=== PATIENT | female | born 1945 ===

== ENCOUNTER → 2020-04-14 11:46 | Outpatient (CLI) | payer MEDICARE, SELFPAY ==
[2020-04-14 13:42] LABS: COVID19 -Nasal RAPID Negative (Negative)
== END ==
PROVIDERS: PCP Orthopaedic Surgery Sports Medicine; Visit Provider Physician Assistant
DX: Z20.822 Contact with and (suspected) exposure to COVID-19 (principal)
CPT/HCPCS: 87635; C9803

== ENCOUNTER → 2020-04-15 15:23 | Outpatient (CLI) | payer MEDICARE, SELFPAY ==
[2020-04-15 15:46] LABS: Bacteria Urine None Seen; RBC Urine None Seen (0-5/HPF)
[2020-04-15 16:23] LABS: Appearance Urine UA CLEAR; Bilirubin Urine UA NEGATIVE (NEGATIVE); Color Urine UA YELLOW; Glucose Urine UA NEGATIVE (Negative); Ketones Urine UA NEGATIVE (NEGATIVE); Leukocyte Esterase Urine UA NEGATIVE (NEGATIVE); Nitrite Urine UA NEGATIVE (Negative); Occult Blood Urine UA NEGATIVE (Negative); Protein Urine UA NEGATIVE (Negative); Urobilinogen Urine UA 0.2 E.U./dL (0.2)
[2020-04-15 16:24] LABS: pH Urine UA 6.5 (4.5-8.0)
[2020-04-15 16:41] LABS: Culture Indicated Urine Cult Not Indicated; Squamous Epithelial Cell Urine 0-1 /HPF (0-5/HPF); WBC Urine 0-1/HPF (0-5/HPF)
== END ==
PROVIDERS: PCP Family Medicine; Referring Provider Orthopaedic Surgery; Visit Provider Orthopaedic Surgery
DX: N39.0 Urinary tract infection, site not specified (principal)
CPT/HCPCS: 81001

== ENCOUNTER 2020-04-16 08:26 | Day surgery (SDC) | payer MEDICARE, SELFPAY ==
[2020-04-16] VITALS (14 sets, daily range): BP systolic 96–153; BP diastolic 52–85; PULSE 61–81; RESP 13–18; TEMP 34.6–36.9; O2SAT 95–100; BMI 20.3; BMI 20.9
--- NOTE | 2020-04-16 | DI.RAD.S_ITS ---
PROCEDURE: XR HIP W PEL IF DONE RT 4V INDICATIONS: INNER OP HIP ANTERIOR TECHNIQUE: 2 view(s) of the hip acquired. COMPARISON: [facility] [place], CR, XR PELVIS WITH LATERAL HIP RIGHT, 03/03/2020, 16:02. FINDINGS: Bones: 3 intraoperative films demonstrate performance of total right hip arthroplasty, with hardware components in expected positions. The hip joint appears congruent. The visualized bony structures appear intact. Soft tissues: Overlying postoperative changes are noted. No suspicious soft tissue densities. IMPRESSION: Intraoperative imaging for total right hip arthroplasty with no radiographic evidence of complications. Dictated by: Bharath Cano M.D. on 04/16/2020 at 14:50 Approved by: Bharath Cano M.D. on 04/16/2020 at 14:52
--- NOTE | 2020-04-16 07:38 | DI.RAD.S_ITS ---
PROCEDURE: XR HIP W PEL IF DONE RT 2V INDICATIONS: right hip surgery TECHNIQUE: AP pelvis and lateral view of the right hip acquired. COMPARISON: [facility] [place], CR, XR PELVIS WITH LATERAL HIP RIGHT, 03/03/2020, 16:02. [facility], CR, XR HIP W PEL IF DONE RT 4V, 04/16/2020, 11:39. FINDINGS: Bones: Patient is status post right hip arthroplasty, with hardware components in expected positions. The hip joint appears congruent. The visualized bony structures appear intact. Mild left hip joint narrowing. Soft tissues: Overlying postoperative changes are noted. No suspicious soft tissue densities. IMPRESSION: Expected immediate appearance status post placement of right hip arthroplasty. Dictated by: Jonah STANLEY Interpreted: Gómez Marcus MD on 04/16/2020 at 15:43 Approved by: Gómez Marcus M.D. on 04/16/2020 at 16:13
--- NOTE | 2020-04-16 07:43 | PM.OP.1 ---
Operative Date/Time/Diagnoses Date of procedure: 04/16/20 Time of procedure: 11:06 Pre-op diagnosis: right hip OA Post-op diagnosis: same Procedure & Clinicians Procedure: Right total hip arthroplasty anterior approach Same procedure as scheduled: Yes Indications: The patient has had progressively worsening right hip pain with radiographic changes consistent with arthritis. Non-operative management has failed and the patient has requested total hip replacement. The risks, benefits and alternatives to surgery were discussed with the patient prior to proceeding. Risks discussed included, but were not limited to, failure to relieve pain, leg length discrepancy, dislocation, stiffness, infection, nerve damage, deep venous thrombosis, pulmonary embolism, stroke, coma, heart attack, permanent paralysis and , as well as the potential need for eventual revision of the prosthetic. Surgeon: Isabelle Turner Payroll Administrator: Zak Chowdhury Click Yes if Unassisted: Yes Anesthesia Type: General and Spinal Operative Notes Findings: severe right hip osteoarthritis, adequate stability, soft bone Closure Type: primary Specimen(s): none sent Prosthetic devices, grafts, tissues, transplants, or devices: Turner [employer] Nephew R3 50 cup, size 4 standard offset femur, anthology, -3 neck,one 15 mm screw Estimated Blood Loss (mL): 250 Blood products transfused: none Procedure in detail: The patient was brought to the operating room. Patient was carefully positioned in the supine position. Time-out was performed and antibiotics were given. Anesthesia was induced. She was positioned in the on the table in order to allow hyperextension of the hip. The right lower extremity was prepped and draped in a standard sterile fashion. An anterior right hip incision was made 1 fingerbreadth lateral to the anterior superior iliac spine and extended distally towards the greater trochanter. Dissection was carried out through skin and subcutaneous tissues. Superficial hemostasis was achieved. The fascia over the tensor fascia jason was defined and incised with a knife. Two Allis clamps were used to grasp the fascia. Tensor fascia jason was retracted laterally. A gelpi retractor was placed. Dissection was carried out down along the neck. The circumflex vessels were carefully identified and cauterized with the Aqua Mantis. There was good visualization of the femoral neck. A Cobra was placed superior to the neck and the gluteus fibers were carefully stripped from that superior aspect of the capsule. A 2nd retractor was placed along the inferior aspect of the neck. The rectus insertion along the capsule was partially released. A 3rd retractor that was then gently placed over the rim of the acetabulum under the rectus. Capsule was carefully incised and released from the intertrochanteric line circumferentially superior to the mid sagittal line and inferiorly to the mid sagittal line until the lesser trochanter was palpable. A tag stitch was placed both in the superior and inferior limb of the capsular insertion. Along the acetabulum capsule was also released up to the mid sagittal 12:00 position. A portion of the labrum was resected. A saw was used to perform an osteotomy at the level of the intertrochanteric line and the junction of the superior femoral neck leaving approximately 1 finger breath of residual inferior neck above the lesser trochanter. A 2nd cut was made along the femoral neck at the base of the head and a napkin ring of neck was removed. Corkscrew was placed in the femoral head and the head was removed without difficulty. Retractors were then repositioned around the acetabulum. Residual labrum was resected and additional osteophytes were removed. A reamer that was 4 mm below the templated size was placed by hand in the acetabulum and it was reamed to centralize the acetabulum. It was then reamed up to 2 under the templated size and fluoroscopy was brought in to confirm the position of the reaming and depth of reaming. I reamed 1 under the anticipated size, A trial cup was placed and noted that it was appropriately sized and fluoroscopy confirmed position and depth. The component was open and inserted without difficulty fluoroscopic imaging was used to confirm that the cup had been adequately seated and was well positioned. that was further stabilized with a single screw.Neutral poly liner was placed. The cup was tested and noted to be stable. Attention was then directed to the femur. The femur was gently hyperextended additional capsular release was performed as needed in order to allow adequate visualization of the proximal femur with elevation of the femur. Patient was placed in a hyperextended slightly adducted position with maximum external rotation. Box osteotome was used to check for any residual neck as well as sclerotic bone along the trochanter. Lincoln pepper was placed in the femur. Additional broaching was performed. Canal finder was used to determine the alignment of the canal and position. Size 1 broach was placed. The canal was then appropriately broached up to the templated size as long as there was adequate stability of the broach and serial advancement of the broach without excessive impingement. Specific attention was directed at avoiding varus attempting to direct the distal aspect of the broach more anteriorly and avoiding excessive anteversion. Trial reduction showed acceptable range of motion, good stability, no posterior impingement, pentecostal of leg length and appropriate lateral shuck. I also hyperflexed the hip and checked that there was no impingement anteriorly and there was good stability with flexion, adduction and internal rotation. Marcaine and Exparel were injected.. The stem was placed without difficulty. Repeat trial reduction and x-ray showed acceptable overall position, length, and no evidence of the femoral fracture. Final head was placed. Wound was meticulously irrigated with normal saline. The hip was reduced and additional Exparel and Marcaine were injected. The capsule was closed with interrupted nonabsorbable sutures. The fascia of the tensor was closed with interrupted and running Vicryl. No drain was placed. Any tensor fascia jason muscle that appeared to be contused or injured which was a minimal amount was carefully resected. Capsule around the tensor was injected with Exparel and Marcaine. The skin was closed with barbed stitches for the subcutaneous tissue and skin. We also used surgical glue. The wound was dressed sterilely. Brief Betadine soak was also used and was meticulously irrigated with normal saline. Patient was transferred to recovery room in satisfactory condition. Complications: none Post-operative Condition: stable Disposition: Acute Care Plan for aftercare: The patient will be maintained on a standard total hip replacement protocol with weight bearing as tolerated and anterior hip precautions. The patient will receive Aspirin and sequential compression devices for DVT prophylaxis. The patient will be discharged home when safe for the home environment.
[2020-04-16] MEDS: ACETAMINOPHEN 325 MG TABLET 975 MG PO (09:22)
[2020-04-16] MEDS: VANCOMYCIN 1,000 MG/200 ML PIGGYBACK 200 MG IV ×2 (09:35→21:45)
[2020-04-16] MEDS: LACTATED RINGERS 1,000 ML 42 ML IV ×2 (09:45→13:15)
--- NOTE | 2020-04-16 10:08 | PM.PREOP ---
Pre-operative Note COVID-19 COVID-19 status: Negative Interval Note History & Physical reviewed/Exam performed by Physician: Yes Changes to H&P: No
[2020-04-16] MEDS: GENTAMICIN 100 MG in SODIUM CHLORIDE 0.9% 100 ML 102.5 ML IV (10:25)
[2020-04-16] MEDS: BUPIVACAINE LIPOSOME 266 MG/20 ML VIAL INJ (11:01)
[2020-04-16] MEDS: TRANEXAMIC ACID 1,000 MG VIAL 1000 MG INJ ×2 (11:01→12:31)
[2020-04-16] MEDS: BUPIVACAINE 0.5% W/ EPI (PF) 30 ML VIAL INJ (11:03)
[2020-04-16] MEDS: SODIUM CHLORIDE IRRIG SOLUTION 250 ML, POVIDONE-IODINE SPONGE STICKS 1 APPLIC IRR (11:04)
--- NOTE | 2020-04-16 11:07 | SUR.OPER ---
Supine on padded [place] table with bilateral legs secured in padded positioning boots and suspended in positioning spars, operative leg in traction per surgeon. Head on one pillow. Arm on non-operative side secured on padded armboard <90 degrees abduction. Arm on operative side padded and resting across chest then secured with tape over sheet. Padded perineal post in place per surgeon.
--- NOTE | 2020-04-16 14:14 | PC.NURSE ---
Patient up to floor around 1350. She had a total hip replacement, anterior approach. Dressing is aquacel and clean, dry, and intact. Patient is A&Ox3, she denies pain and sais that she does not do well with Narcotics at all, she get nauseous and has severe emesis. She has feeling to all of her R.leg and lower back. She has a small purple bruise to her r.inner thigh and site from where epidural was on lower back. Friend is in room visiting and patient will be on ivf. CMS wnl and ppx2.
[2020-04-16] MEDS: ACETAMINOPHEN 325 MG TABLET 650 MG PO ×2 (14:43→21:38)
[2020-04-16] MEDS: LACTATED RINGERS 1,000 ML 125 ML IV ×2 (14:43→21:50)
--- NOTE | 2020-04-16 16:07 | PC.NURSE ---
Addendum entered by Sarina Vega R.N. 04/16/20 19:55: Pt drank two cups of hot tea and reports urge to void. Assisted to commode observing anterior hip precautions. Pt able to void 400 cc's and reports lower abdominal pain resolved. Denies need for analgesia to treat postop hip pain. Addendum entered by Sarina Vega R.N. 04/16/20 19:05: Dr. Turner in to see patient and was made aware of pt's voiding behaviors this shift and c/o lower abdominal discomfort. Per Dr. Turner, continue to periodically get pt up to commode to attempt to void. Addendum entered by Sarina Vega R.N. 04/16/20 18:38: Pt reports lower abdominal discomfort continues. Has passed gas and was incontinent of large void in bed. Has warm blanket to abdomen. Discussed with pt urinary retention and hesitancy to void with spinal anesthesia. Discussion with pt re urinary catheterization and pt refused this intervention emphatically. Pt now sipping hot tea. Addendum entered by Sarina Vega R.N. 04/16/20 17:58: Assisted pt to bedside commode with two staff members observing anterior hip precautions. Pt already incontinent of urine in bed. No void on commode. Bedding changed, pericare provided and brief placed. Returned to bed with assistance x 2. RLE supported on lengthwise pillow x 1. Pt's RLE kept in neutral position. Warm blanket provided to lower abdomen. Addendum entered by Sarina Vega R.N. 04/16/20 17:32: Pt c/o lower abdominal discomfort. Ibuprofen given and bladder scan completed by RN SUPPLEMENTAL for 399 cc/s. Pt denies urge or need to void. Explained to pt anesthesia can dull the sensation to void and will continue to closely monitor. Original Note: Pt awake and alert resting quietly in bed. Room air 94% per continuous pulse oximeter. Pt's female friend is present, attentive, and involved in pt's care. Pt admits to right hip pain 2/10. Expresses strong feelings about narcotics and will attempt to void these as pt requests. Currently does not want any analgesia. Provided with banana and applesauce. Denies nausea although bowel tones are quiet with soft abdomen. Palpable right pedal pulse. BL calf scd's in place with pillow between pt's legs as found pt when shift began. Encouraged to call for needs. Notified P.T. of pt's arrival to room 208. Pt denies need to void. Ice to right anterior hip placed over gown.
[2020-04-16] MEDS: IBUPROFEN 400 MG TABLET PO ×2 (17:11→21:38)
[2020-04-16] MEDS: ASPIRIN EC 81 MG TABLET PO (21:38)
[2020-04-16] MEDS: DOCUSATE 100 MG CAPSULE PO (21:38)
[2020-04-16] MEDS: ALPRAZolam 0.25 MG TABLET 1 MG PO (21:39)
[2020-04-17] MEDS: carisoprodoL 350 MG TABLET PO (00:03)
[2020-04-17 00:12] VITALS: BP 120/70; PULSE 78; RESP 18; TEMP 36.4; O2SAT 98
[2020-04-17] MEDS: IBUPROFEN 400 MG TABLET PO ×3 (00:14→09:06)
--- NOTE | 2020-04-17 03:01 | PC.NURSE ---
0019: patient is alert and oriented. Breath sounds CTA with RA sat of 98%. HRR w/murmur. Denies nausea. BT present and states she is passing flatus. Has voided since surgery and denies dysuria, frequency or urgency. Able to move self in bed. Has not been up as yet this shift so gait not assessed but reports she was up on evening shift to [facility] with walker and 1 assist and denies any weakness. Does admit to 2/10 discomfort in right leg and was medicated with scheduled Ibuprofen as well as Soma and is currently asleep. Aquacel dressing to right anterior hip is CDI. CMS is intact. Wearing bilateral calf SCD's. Fall risk score is moderate and bed alarm is activated.
[2020-04-17 06:00] VITALS: BP 147/64; PULSE 83; RESP 18; TEMP 36.6; O2SAT 97
[2020-04-17 07:18] VITALS: BP 126/75; PULSE 68; RESP 16; TEMP 36.8; O2SAT 97
--- NOTE | 2020-04-17 08:47 | PM.PNPO.1 ---
Subjective Subjective Date Patient Seen: 04/17/20 Time Patient Seen: 08:47 Interval history: POD #1 Status post right total hip arthroplasty with Dr. Turner. Patient's pain is well controlled this morning. She complains of some anterior thigh pain. She has mobilized in her room and gone to the bathroom. Exam Vital Signs (past 8 hours): - 04/17/20 06:00 04/17/20 07:18 Temperature 97.8 F 98.3 F Pulse Rate 83 68 Respiratory Rate 18 16 Blood Pressure 147/64 H 126/75 Pulse Oximetry 97 97 Oxygen Delivery Method Room Air Oxygen Flow Rate 0 Narrative Exam Narrative: Patient lying in bed no acute distress. She is alert orient x3. Calves are soft compressible, nontender bilaterally. She is able to actively dorsiflex plantar flex. Right hip dressing is CDI. Dorsalis pedis pulses 2+. SCDs on and functioning. [facility] Medical History Anxiety Elevated cholesterol Murmur, cardiac Osteoarthritis Social History household members: none Smoking Status: Former smoker alcohol intake: current Assessment & Plan Post-op Postoperative Procedures: Procedures Operation Date: 04/16/20 10:15 Actual Procedures Side Surgeon p Total Hip Arthroplasty/Anterior Approach Right Isabelle Kristi Turner MD patient will mobilize with PT today. Anterior hip precautions. ASA for DVT prophylaxis. Tramadol and Zofran prescriptions for home. Anticipate discharge home today. Quality VTE Deep Vein Thrombosis/Pulmonary Embolism Present on Admission: No
--- NOTE | 2020-04-17 09:05 | PT.IIE ---
Current Diagnoses Unilateral primary osteoarthritis, right hip (04/16/20) Pain in right hip (04/16/20) Surgery Performed Operation Date: 04/16/20 10:15 Actual Procedures p Total Hip Arthroplasty/Anterior Approach(Right) - Isabelle Turner MD Medical History (Last Reviewed 04/17/20 @ 08:48 by Meredith Claire PA-C) Anxiety Elevated cholesterol Murmur, cardiac Osteoarthritis Physical Therapy Inpatient Evaluation/Re-Eval M1 PT/OT-IP Prior Functional Status Start: 04/17/20 13:47 Freq: NEEDED Status: Active Protocol: Document 04/17/20 09:05 AB (Rec: 04/17/20 13:58 AB [email or web address]) Medical Review Prior Functional Status Medical History Reviewed Yes Communication able to make needs known; has some memory issues Mobility and Gait pt stated that she is indpeendent with all mobilities and ambulation using a 4WW and uses SPC to go up/down steps Social History Household Members none Living Arrangements House Number of Floors (Floors) One Floor Number of Stairs To Enter/Railing? stated that she has 2 steps without rails to the TV room but does not need to go there no steps to enter the house Home Environment Standard Height Toilet,Walk in Shower Home Equipment Front Wheel Walker,Four Wheel Walker,Straight Cane,Raised Toilet Seat w/Armrests,Shower Seat without Backrest,Hand Held Shower,Grab Bars Near Toilet,Grab Bars In Shower M2 PT-IP Current Condition Start: 04/17/20 13:47 Freq: NEEDED Status: Active Protocol: Document 04/17/20 09:05 AB (Rec: 04/17/20 13:58 AB [id number]) Physical Therapy Current Condition Current Condition Evaluation Date 04/17/20 Treatment Diagnosis s/p R MARIA EUGENIA anterior approach; difficulty in walking Onset Date 04/16/20 Precautions Anterior Hip Precautions No Hip Extension,No Hip External Rotation Weight Bearing Status Weight Bearing Status Weight Bear as Tolerated Allowed Weight Bearing Amount (enter % RLE WBAT or #) (%) M3 PT-IP Subjective Start: 04/17/20 13:47 Freq: NEEDED Status: Active Protocol: Document 04/17/20 09:05 AB (Rec: 04/17/20 13:58 AB [email or web address]) Subjective Physical Therapy Visit Type Type Initial Evaluation Visit Start Time 09:05 Visit Stop Time 09:58 Total Visit Minutes 53 Number of ROTARY SHEAR CUTTER Visits 0 Physical Therapy Visit Comments Patient Comments pt is agreeable to do PT Therapy Pain Assessment Pain When Pain Assessed At Rest Pain Present Pain Present Pain Reported Location right hip Intensity 1 Scale Used Numeric (0 - 10) Pain Management Techniques Distraction,Modification of Treatment,Re-positioning, Timing of Activity with Medications M4 PT-IP Mobility and Gait Start: 04/17/20 13:47 Freq: NEEDED Status: Active Protocol: Document 04/17/20 09:05 AB (Rec: 04/17/20 13:58 [email or web address]) PT-Bed Mobility Assessment Supine to Sit Supine to Sit Standby Assistance Sit to Supine Sit to Supine Standby Assistance PT-Transfer Assessment Sit to and From Stand Sit to and from Stand Standby Assistance,Use of Upper Extremities Equipment Transfer Assistive Device Gait Belt,Front Wheeled Walker Orthotic/Prosthetic Devices or Brace: No Transfers Transfer Destination Chair Transfer Technique ambulated using FWW Transfer Ability Level of Assist Standby Assistance,1 Person Assistance,Use of Upper Extremities Comments Mobility Comments educated pt on hip precautions and pt requires cues to recall. pt completed supine to sit SBA and ambulated in room using FWW ~ 50 ft SBA. asked pt regarding stair climbing and pt declined. stated that she does not need to go to the tv room and do stairs. pt agreed to stay up on the chair. pt with confusion and requires cues for hip precautions. positioned pt on the chair. call light and table placed within reach. Gait Assessment Gait Gait Assistance Required: Standby Assistance Distance (Feet) 50 Able to Maintain Weight Bearing Status Yes During Gait Assistive Devices Assistive Device Gait Belt,Front Wheeled Walker Orthotic/Prosthetic Devices or Brace: No Gait Deviations General Gait Pattern Antalgic,Decreased Stride Length,Decreased Feet Clearance Factors Limiting Gait Function Factors Limiting Gait Function Decreased Activity Tolerance, Pain,Poor Balance,Poor Safety Awareness PT-Balance Assessment Sitting Balance and Reactions Static Sitting Balance Ability Good Dynamic Sitting Balance Ability Good Standing Balance and Reactions Static Standing Balance Ability Fair Dynamic Standing Balance Ability Fair Device Used FWW M5 PT-IP Objective Assessments Start: 04/17/20 13:47 Freq: NEEDED Status: Active Protocol: Document 04/17/20 09:05 AB (Rec: 04/17/20 13:58 AB [id number]) Orientation Orientation/Cognition Level of Alertness Confusional State Orientation Name,Place,Situation Safety Awareness Decreased Safety Awareness Memory Description Short Term Impaired Gross Range of Motion Lower Extremity ROM Assessment Within Functional Limits Strength Lower Extremity Strength Assessment Right Impaired Hip 3+/5 Knee 4-/5 Muscle Tone Muscle Tone WNL Yes M6 PT-IP Treatment Start: 04/17/20 13:47 Freq: NEEDED Status: Active Protocol: Document 04/17/20 09:05 AB (Rec: 04/17/20 13:58 AB [email or web address]) Physical Therapy Treatment Education Education Provided Precautions,Weight Bearing Status,Post-Op Packet,Safety M7 PT-IP Assessment and Plan Start: 04/17/20 13:47 Freq: NEEDED Status: Active Protocol: Document 04/17/20 09:05 AB (Rec: 04/17/20 13:58 [email or web address]) PT Summary Assessment and Plan Potential Rehabilitation Potential Good Status of Condition at Evaluation Evolving Summary Impairments Pain,ROM,Strength,Balance, Coordination,Sensation,Tone, Cognition,Bed Mobility, Transfers,Gait,Activity Tolerance Assessment Summary pt is doing well mobility mclean requiring SBA but requires cues for hip precautions. informed pt to put visual aids around the house to assist her with recalling hip precautions and pt agreed. pt plans to go home with her friend to assist her. pt stated that she has out pt PT scheduled already. Goals Bed Mobility Goal Independent Transfer Goal Independent,Front Wheeled Walker Gait Goal Independent,Front Wheel Walker Gait Distance 200 Other Goals up/down 2 steps SPC SBA Days to Meet Goals 5 Frequency of Treatment Frequency Of Treatment Twice a Day Treatment Plan Physical Therapy Treatment Plan Bed Mobility Training,Transfer Training,Gait Training, Therapeutic Exercise,Balance Retraining,Post Op Education, Discharge Planning,Hot or Cold Pack,Neuromuscular Re-ed, Coordination Retraining,Manual Therapy Recommendations To Nursing Amount of Assist Needed 1 Person Assist Discharge Recommendations PT Discharge Recommendations Home with Assistance, Outpatient PT Transportation Needs at Discharge Private Vehicle
[2020-04-17] MEDS: ASPIRIN EC 81 MG TABLET PO (09:07)
[2020-04-17] MEDS: ACETAMINOPHEN 325 MG TABLET 650 MG PO (09:07)
--- NOTE | 2020-04-17 12:36 | PC.NURSE ---
Pt discharge education given to pt and caregiver, discussed- post-op hip precautions, activity, diet, s/s of infection, s/s of stroke, reasons to seek medical attention, medication safety, and f/u appts. IV removed, intact, tolerated well. All questions answered, pt and caregiver expressed understanding of education given. Pt dressed with assistance of caregiver and PLANT TOUR GUIDE. All belongings packed and sent with caregiver. Pt left via w/c to caregiver's POV assisted by PLANT TOUR GUIDE.
--- NOTE | 2020-04-17 14:57 | CM.DANOTE ---
Discharge Planning/Care Management DCP: assessment: case received, EMR reviewed, spoke with ortho CLIFFORD Rogers who noted need for HH and then met this morning with pt. Found her dozing in her bedside chair, introduced self and role. Pt confirmed she is aware that she has been given the ok for d/c home today and that her caregiver Vee Harris will be picking her up. They will need priority board pass as soon as they know what ferry she will return to [facility] and SOFTWARE LICENSING SPECIALIST is aware. Discussed HH services. [place] until she can do this again. Discussed agency option: only [facility] and she was aware that this may mean a PT visit only 1x week. She thought this would still be helpful. She said Vee would be staying with her for a couple of nights and then helping her as I need it. Referral then given to [facility] via fax and phone discussion. Orders/Face/Face document and clinical info were faxed. Confirmed info on the face sheet/demographics. Pt stated her home number: [phone] is the best number to use (rather than her cell). Pt worked with PT and did leave for home in company of Vee as per planned. CM Discharge Assessment Start: 04/17/20 14:55 Freq: Status: Active Protocol: Document 04/17/20 14:56 ITV (Rec: 04/17/20 14:57 ITV [id number]) Discharge Planning Assessment Advance Directives? Yes History Provided By Patient,Medical Record Prior Living Arrangements House Household Members none Is patient alert and oriented? Yes Discharge Plan Home with Home Health Pre-Anesthesia Assessment Start: 04/07/20 11:59 Freq: Status: Complete Protocol: Document 04/07/20 11:59 VLJ (Rec: 04/07/20 12:43 [facility] [id number]) Pre-Anesthesia Assessment PAC Comment phobia about needles, highly anxious, states that she is afraid that she will panic Preferred Name Gissell Patient Information Reviewed Via Phone Assessment Assessment Completed With Patient Diagnostic Results BMP/CMP,CBC,EKG,Urinalysis, Other Comment Covid 04/14 at Primary Care Provider Harpreet Ko Seen Specialist in Last 12 Months Yes Specialist Seen Orthopedist Preferred Language Northern Irish Detective Sergeant Required No Height 160.02 cm Visual Assist Glasses Dentition Type Teeth, Natural Present,Teeth, Missing Barriers to Learning Age related,Memory,Visual Other Aids No Hx Anesthesia Reactions No Hx Family Anesthesia Reaction No Hx Malignant Hyperthermia No Hx Blood Transfusions No Hx Blood Transfusion Reaction No Anesthesia Review Requested No Wellness Spa Manager No alcohol intake current alcohol intake frequency 0-2 drinks per day Smoking Status Former smoker Tobacco type cigarettes Has it been 2 weeks or less since No patient quit smoking how long ago did patient quit smoking 1965 Substance Use Type sedatives Pain Present Pain Reported Comment right hip Musculoskeletal Symptoms Abnormal Gait,Difficulty Walking,Joint Pain,Joint Stiffness,Joint Swelling, Limited Range of Motion,Muscle Weakness History of Falling (Recent or History of No ) Patient is completely paralyzed or No completely immobile Ambulatory Aid Crutches/cane/walker Prosthesis or Orthotic Device Front Wheel Walker Gait/Transferring Weak,Impaired Mental Status Oriented to own ability Is patient on oxygen? No Does patient have VALLE/SOB No Hx Sleep Apnea No CPAP/BIPAP use not prescribed Will Bring CPAP/BIPAP DOS No Currently Taking a Beta Sam No Can You Climb a Flight of Stairs Without No SOB Hx Chest Pain No Hx SOB No Hx Syncope or Dizziness Yes: occasional a.m., resolves with fluid intake Anti-Coagulant Therapy Aspirin 81 mg Has a Entertainment Manager No Cardiac Testing Yes: cath for murmur 'age 8' Hx Pacemaker/ICD No Pacemaker Rep Required? No Cardiac Clearance Received Not Applicable Diet Type At Home Other Gastrointestinal Symptoms Loose Stools Comment Avoids dairy (occasionally has cheese) - avoids cow Bladder Pattern Frequency,Incontinent,Urgency Urinary Catheter Present No Hx Urinary Self Catheterization No Comment Sometimes I don't make it to the bathroom, wears a pad Diabetes No Patient No Lactating No Hx Drug Resistant Organism No Presence of External or Internal Medical No Devices Have you had any close contact with No someone diagnosed with COVID-19? Are you experiencing any of these No symptoms symptoms? Evaluation/Screening for possible COVID- Yes 19 infection completed? Marital Status Lives With none Prior Living Arrangements House Number of Stairs To Enter/Railing? two stairs in the house Support System Caregiver Does the Patient Have Assistance After Yes Surgery Patient Discharge Plan Description Home Health Feels Safe in Current Environment No Been Physically Hurt or Threatened By a No Person in Current Environment Do you have thoughts of harming yourself None or others? Are you currently considering suicide? No Do you have a plan to hurt yourself or No Plan others? Comment states I never feel safe, feels vulnerable based on past hx, has a dog Do You Have Any Spiritual Beliefs That No May Affect Your HC Choices? Do You Have Any Cultural Practices That No May Affect Your HC Choices? Who Can We Speak to About Patient's Care Family & Friends Identifying Code for Release of Patient Declined Information Health Care Proxy/Next of Kin Ex- - Sergio Whittaker ( Score) Health Care Proxy Emergency Contact Name Ex- - Sergio Whittaker ( Score) Emergency Contact Advance Directives? Yes Requested Patient Bring Advanced Yes Directives DOS Power of Supply Chain Director No PAC Instructions Assistance for 24 hours post- op,Do not shave/clip surgical site,Durable medical equipment ,Medications to take/avoid, Nasal antibiotic,No ETOH/ petroleum product on skin DOS, NPO,Post-op transportation,Pre -op antibiotic,Pre-surgical wash,Sensory aids,Sturdy shoes /comfortable clothes,Do not bring valuables and remove jewelry
== END 2020-04-17 12:39 | disposition home or self-care (01) ==
LOC: OR 08:27 → AC 08:28
PROVIDERS: PCP Family Medicine; Referring Provider Orthopaedic Surgery; Visit Provider Orthopaedic Surgery
PROC: (CPT 27130; principal; 2020-04-16 10:15)
DX: M16.11 Unilateral primary osteoarthritis, right hip (principal); F41.9 Anxiety disorder, unspecified
CPT/HCPCS: 27130; 73502; 73503; 76000; 97161; 97530; C1776; C9290; J1100; J2250; J2405; J2704; J3010

== ENCOUNTER → 2021-04-22 11:35 | Outpatient (CLI) | payer MEDICARE, SELFPAY ==
[2021-04-21 10:04] VITALS: BMI 20.9
[2021-04-22 19:09] LABS: Add Manual Diff / Slide Review NO; Basophils Absolute Auto 100 /uL (0-100); Basophils Percent Auto 0.8 % (0-2); Eosinophils Absolute Auto 100 /uL (0-450); Eosinophils Percent Auto 1.2 % (2-4); Hematocrit 41.6 % (36-46); Hemoglobin 13.7 g/dL (12.0-16.0); Lymphocytes Absolute Auto 1900 /uL (1100-4500); Lymphocytes Percent Auto 29.5 % (25-40); Mean Corpuscular HGB Conc 33.1 % (30-36); Mean Corpuscular Hemoglobin 30.9 PG (26-34); Mean Corpuscular Volume 93.3 fL (80-100); Monocytes Absolute Auto 700 /uL (0-900); Monocytes Percent Auto 10.7 % (3-14); Neutrophils Absolute Auto 3700 /uL (1500-7000); Neutrophils Percent Auto 57.8 % (50-75); Platelet Count 257 X10^3/uL (150-400); Red Blood Cell Count 4.45 X10^6/uL (4.0-5.2); Red Cell Distribution Width 13.4 % (11.6-14.8); White Blood Cell Count 6.3 X10^3/uL (4.5-11.0)
[2021-04-22 19:10] LABS: Alanine Aminotransferase 15 IU/L (<35); Albumin 4.2 g/dL (3.5-5.0); Albumin Globulin Ratio 1.4 (1.0-2.8); Alkaline Phosphatase 58 U/L (38-126); Aspartate Aminotransferase 27 IU/L (14-36); BUN Creatinine Ratio 21.7 (6-22); Bilirubin Total 0.6 mg/dL (0.2-1.3); Blood Urea Nitrogen 15 mg/dL (7-17); Carbon Dioxide 30 mmol/L (22-32); Chloride 104 mmol/L (98-107); Estimated Glomerular Filt Rate > 60.0 mL/min (>60); Globulin 2.9 g/dL (1.7-4.1); Glucose 102 mg/dL (80-110); HEMOLYSIS 19 (0-50); Potassium 4.3 mmol/L (3.4-5.1); Sodium 138 mmol/L (137-145); Total Protein 7.1 g/dL (6.3-8.2)
== END ==
PROVIDERS: PCP Family Medicine; Visit Provider Family Medicine
DX: R01.1 Cardiac murmur, unspecified (principal); R42 Dizziness and giddiness
CPT/HCPCS: 80053; 85025

== ENCOUNTER → 2021-06-01 15:21 | Outpatient (CLI) | payer MEDICARE, SELFPAY ==
[2021-05-04 16:00] VITALS: BMI 20.9
== END ==
PROVIDERS: PCP Family Medicine; Referring Provider Physician Assistant; Visit Provider Physician Assistant
DX: N39.0 Urinary tract infection, site not specified (principal)
CPT/HCPCS: 87077; 87086; 87186

== ENCOUNTER 2023-01-19 11:43 | Emergency (ER) | payer MEDICARE, SELFPAY ==
[2021-05-04 16:00] VITALS: BMI 20.9
[2023-01-19] VITALS (22 sets, daily range): BP systolic 114–206; BP diastolic 58–99; PULSE 57–95; RESP 16–34; TEMP 36.8; O2SAT 94–99; BMI 20.1
[2023-01-19] MEDS: ONDANSETRON 4 MG/2 ML INJ IV ×2 (12:04→14:37)
[2023-01-19 12:05] LABS: Add Manual Diff / Slide Review NO; Basophils Absolute Auto 0 /uL (0-100); Basophils Percent Auto 0.4 % (0-2); Eosinophils Absolute Auto 0 /uL (0-450); Eosinophils Percent Auto 0.1 % (2-4); Hematocrit 41.5 % (36-46); Hemoglobin 14.2 g/dL (12.0-16.0); Lymphocytes Absolute Auto 1300 /uL (1100-4500); Lymphocytes Percent Auto 13.9 % (25-40); Mean Corpuscular HGB Conc 34.2 % (30-36); Mean Corpuscular Hemoglobin 31.7 PG (26-34); Mean Corpuscular Volume 92.6 fL (80-100); Monocytes Absolute Auto 500 /uL (0-900); Neutrophils Absolute Auto 7500 /uL (1500-7000); Neutrophils Percent Auto 80.6 % (50-75); Platelet Count 296 X10^3/uL (150-400); Red Blood Cell Count 4.48 X10^6/uL (4.0-5.2); Red Cell Distribution Width 13.5 % (11.6-14.8); White Blood Cell Count 9.3 X10^3/uL (4.5-11.0)
[2023-01-19 12:15] LABS: Alanine Aminotransferase 18 IU/L (<35); Albumin 4.7 g/dL (3.5-5.0); Albumin Globulin Ratio 1.5 (1.0-2.8); Alkaline Phosphatase 74 U/L (38-126); Aspartate Aminotransferase 28 IU/L (14-36); Bilirubin Total 0.9 mg/dL (0.2-1.3); Blood Urea Nitrogen 6 mg/dL (7-17); Calcium 9.5 mg/dL (8.4-10.2); Carbon Dioxide 26 mmol/L (22-32); Chloride 93 mmol/L (98-107); Estimated Glomerular Filt Rate > 60 mL/min (>60); Globulin 3.1 g/dL (1.7-4.1); Glucose 143 mg/dL (80-110); Potassium 3.5 mmol/L (3.4-5.1); Sodium 128 mmol/L (137-145); Total Protein 7.8 g/dL (6.3-8.2)
[2023-01-19 12:17] LABS: HEMOLYSIS 55 (0-50)
[2023-01-19] MEDS: SODIUM CHLORIDE 0.9% 1,000 ML 1000 ML IV ×2 (13:11→14:31)
--- NOTE | 2023-01-19 13:32 | ED_ITS ---
<Statement entered by Eder David MD - 01/19/23 20:06> Case was discussed and lab data reviewed prior to discharge agree with the plan HPI - Nausea/Vomiting/Diarrhea General Chief complaint: Nausea/Vomiting/Diarrhea Stated complaint: dehydration/V T-2 Time Seen by Provider: 01/19/23 12:45 Source: patient and family Mode of arrival: Wheelchair History of Present Illness HPI Narrative: 77-year-old female who presents for evaluation of nausea vomiting and diarrhea. She is felt intensely nauseous for the past 3 days, on day 2 she vomited several times a day mostly just bilious without blood, and today she reports abrupt onset of diarrhea. She has not been able to eat for a few days and even vomits up water. She has no sick contacts nor has she had a fever. She denies any pain in her abdomen and her chest or back. She has no headache no visual changes no neurologic changes. She reports 2 other episodes of intense nausea and vomiting in the past 6 months since she moved to [place] from [facility]. She did not see a provider for those episodes and they resolved spontaneously after 3 days. She has no significant past medical history. Related Data Home Medications Medication Instructions Recorded Confirmed alprazolam 1 mg tablet (Xanax) 1 mg PO TID anxiety 04/07/20 04/16/20 carisoprodol 350 mg tablet (Soma) 350 mg PO BEDTIME 04/07/20 04/16/20 Previous Rx's Medication Instructions Recorded ondansetron 4 mg disintegrating 4 mg PO Q8H PRN nausea and 01/19/23 tablet vomiting #10 tabs Allergies Allergy/AdvReac Type Severity Reaction Status Date / Time Penicillins Allergy Severe Nausea, Verified 01/19/23 11:51 Rash, difficulty breathing tetracycline Allergy Nausea Verified 01/19/23 11:51 Milk Containing Products AdvReac Mild Diarrhea Verified 01/19/23 12:12 (Dairy) Opioids - Morphine Analogues AdvReac Mild Nausea Verified 01/19/23 11:51 Review of Systems Review of Systems Narrative: GENERAL: Denies chills, fatigue, malaise, fever, sweats. HEENT: Denies sinus pain, ear pain, sore throat, difficulty swallowing, dizziness. RESPIRATORY: Denies dyspnea, cough, wheezing, hemoptysis, sputum. CARDIOVASCULAR: Denies chest pain, palpitations, orthopnea, edema, GASTROINTESTINAL: Denies constipation, melena. : Denies dysuria, frequency, incontinence, hematuria, urinary retention. MUSCULOSKELETAL: denies weakness, joint pain, or bony pain SKIN: Denies rash, skin lesions, or other NEUROLOGIC: Denies weakness, headache, numbness, change in speech, confusion, seizures, incoordination. PSYCHIATRIC: No concerning psychosocial issues. 12 point review of systems is negative except for those stated above Patient History Medical History Dizziness Murmur, cardiac Elevated cholesterol Osteoarthritis Anxiety Social History household members: none Smoking Status: Former smoker alcohol intake: current Smoking Status: Former smoker alcohol intake frequency: holidays/special occasions only Substance Use Type: sedatives Exam Narrative Exam Narrative: GENERAL: 77 year old patient appears younger than stated age. Thin, Well- developed patient, in no distress. HEAD: Atraumatic. Normocephalic. EYES: Pupils equal round and reactive. Extraocular motions intact. No scleral icterus. No injection or drainage. ENT: Nose without bleeding, purulent drainage. Throat without erythema, tonsillar hypertrophy or exudate. Airway patent. NECK: Trachea midline. Non tender CARDIOVASCULAR: Regular rate and rhythm without murmurs, gallops, or rubs. RESPIRATORY: Clear to auscultation. Breath sounds equal bilaterally. No wheezes, rales, or rhonchi. GASTROINTESTINAL: Abdomen soft, non-tender, nondistended. Bowel sounds are normoactive, guaiac shows soft stool present, negative for blood. EXTREMITIES: No edema or joint tenderness. NEURO: AOx3. SKIN: No rash or erythema of visible areas Initial Vital Signs Initial Vital Signs: Vital Signs Temperature 98.2 F 01/19/23 11:45 Pulse Rate 70 01/19/23 11:45 Respiratory Rate 16 01/19/23 11:45 Blood Pressure 206/99 H 01/19/23 11:45 Pulse Oximetry 96 01/19/23 11:45 Oxygen Delivery Method Room Air 01/19/23 11:45 Course Orders Ordered: ED Orders 01/19/23 11:55 Complete Blood Count AUTO DIFF Stat Comprehensive Metabolic Panel Stat 01/19/23 11:57 Lipase Stat 01/19/23 11:58 EKG-12 Lead Stat 01/19/23 15:57 Urinalysis and Microscopic Stat Urine Culture Stat Discontinued Medications Sodium Chloride (Normal Saline 0.9%) 1,000 mls @ 1,000 mls/hr IV BOLUS ONE Stop: 01/19/23 13:53 Last Infusion: 01/19/23 14:02 Dose: Infused Documented By: Admin: 01/19/23 13:11 Dose: 1,000 mls/hr Documented By: NII Sodium Chloride (Normal Saline 0.9%) 1,000 mls @ 1,000 mls/hr IV BOLUS ONE Stop: 01/19/23 15:26 Last Infusion: 01/19/23 15:32 Dose: Infused Documented By: Admin: 01/19/23 14:31 Dose: 1,000 mls/hr Documented By: RYNE Ondansetron HCl (Ondansetron 4 Mg/2 Ml Inj) 4 mg IV NOW ONE Stop: 01/19/23 11:57 Last Admin: 01/19/23 12:04 Dose: 4 mg Documented By: RYNE Ondansetron HCl (Ondansetron 4 Mg/2 Ml Inj) 4 mg IV NOW ONE Stop: 01/19/23 14:34 Last Admin: 01/19/23 14:37 Dose: 4 mg Documented By: RYNE Vital Signs Vital signs: Vital Signs - 8 hr 01/19/23 11:45 01/19/23 11:51 01/19/23 11:51 Temperature 98.2 F Pulse Rate 70 69 Pulse Rate [Orthostatic Lying] Pulse Rate [Orthostatic Sitting] Pulse Rate [Orthostatic Standing] Respiratory Rate 16 Blood Pressure 206/99 H 206/99 H Blood Pressure [Orthostatic Lying] Blood Pressure [Orthostatic Sitting] Blood Pressure [Orthostatic Standing] Pulse Oximetry 96 96 Oxygen Delivery Method Room Air 01/19/23 12:00 01/19/23 12:00 01/19/23 12:15 Temperature Pulse Rate 70 Pulse Rate [Orthostatic Lying] Pulse Rate [Orthostatic Sitting] Pulse Rate [Orthostatic Standing] Respiratory Rate 24 Blood Pressure 150/67 H 148/65 H Blood Pressure [Orthostatic Lying] Blood Pressure [Orthostatic Sitting] Blood Pressure [Orthostatic Standing] Pulse Oximetry 99 Oxygen Delivery Method 01/19/23 12:15 01/19/23 12:30 11/24/23 12:43 Temperature Pulse Rate 57 L 60 Pulse Rate [Orthostatic Lying] Pulse Rate [Orthostatic Sitting] Pulse Rate [Orthostatic Standing] Respiratory Rate 24 19 Blood Pressure 146/66 H Blood Pressure [Orthostatic Lying] Blood Pressure [Orthostatic Sitting] Blood Pressure [Orthostatic Standing] Pulse Oximetry 98 97 Oxygen Delivery Method 01/19/23 12:43 01/19/23 12:45 01/19/23 12:45 Temperature Pulse Rate 60 59 L Pulse Rate [Orthostatic Lying] Pulse Rate [Orthostatic Sitting] Pulse Rate [Orthostatic Standing] Respiratory Rate 34 H 22 Blood Pressure 141/64 H Blood Pressure [Orthostatic Lying] Blood Pressure [Orthostatic Sitting] Blood Pressure [Orthostatic Standing] Pulse Oximetry 97 97 Oxygen Delivery Method 01/19/23 13:00 01/19/23 13:00 01/19/23 13:15 Temperature Pulse Rate 60 95 H Pulse Rate [Orthostatic Lying] Pulse Rate [Orthostatic Sitting] Pulse Rate [Orthostatic Standing] Respiratory Rate 29 H 33 H Blood Pressure 146/67 H Blood Pressure [Orthostatic Lying] Blood Pressure [Orthostatic Sitting] Blood Pressure [Orthostatic Standing] Pulse Oximetry 97 97 Oxygen Delivery Method 01/19/23 13:15 01/19/23 13:30 01/19/23 13:30 Temperature Pulse Rate 66 Pulse Rate [Orthostatic Lying] Pulse Rate [Orthostatic Sitting] Pulse Rate [Orthostatic Standing] Respiratory Rate 27 H Blood Pressure 164/68 H 162/67 H Blood Pressure [Orthostatic Lying] Blood Pressure [Orthostatic Sitting] Blood Pressure [Orthostatic Standing] Pulse Oximetry 97 Oxygen Delivery Method 01/19/23 13:46 01/19/23 13:46 01/19/23 13:53 Temperature Pulse Rate 76 70 Pulse Rate [Orthostatic Lying] Pulse Rate [Orthostatic Sitting] Pulse Rate [Orthostatic Standing] Respiratory Rate 34 H 24 Blood Pressure 160/70 H Blood Pressure [Orthostatic Lying] Blood Pressure [Orthostatic Sitting] Blood Pressure [Orthostatic Standing] Pulse Oximetry 99 98 Oxygen Delivery Method 01/19/23 13:53 01/19/23 13:56 01/19/23 13:56 Temperature Pulse Rate 67 Pulse Rate [Orthostatic Lying] Pulse Rate [Orthostatic Sitting] Pulse Rate [Orthostatic Standing] Respiratory Rate 29 H Blood Pressure 176/72 H 151/67 H Blood Pressure [Orthostatic Lying] Blood Pressure [Orthostatic Sitting] Blood Pressure [Orthostatic Standing] Pulse Oximetry 98 Oxygen Delivery Method 01/19/23 14:00 01/19/23 14:01 01/19/23 14:26 Temperature Pulse Rate 63 Pulse Rate [Orthostatic Lying] 69 Pulse Rate [Orthostatic Sitting] 68 Pulse Rate [Orthostatic Standing] 66 Respiratory Rate 23 29 H Blood Pressure Blood Pressure [Orthostatic Lying] 160/70 H Blood Pressure [Orthostatic Sitting] 176/72 H Blood Pressure [Orthostatic Standing] 151/67 H Pulse Oximetry 97 95 Oxygen Delivery Method 01/19/23 14:26 01/19/23 14:30 01/19/23 14:30 Temperature Pulse Rate 61 Pulse Rate [Orthostatic Lying] Pulse Rate [Orthostatic Sitting] Pulse Rate [Orthostatic Standing] Respiratory Rate 22 Blood Pressure 133/60 114/58 L Blood Pressure [Orthostatic Lying] Blood Pressure [Orthostatic Sitting] Blood Pressure [Orthostatic Standing] Pulse Oximetry 98 Oxygen Delivery Method 01/19/23 14:45 01/19/23 14:45 01/19/23 15:00 Temperature Pulse Rate 64 66 Pulse Rate [Orthostatic Lying] Pulse Rate [Orthostatic Sitting] Pulse Rate [Orthostatic Standing] Respiratory Rate 22 Blood Pressure 124/60 Blood Pressure [Orthostatic Lying] Blood Pressure [Orthostatic Sitting] Blood Pressure [Orthostatic Standing] Pulse Oximetry 97 98 Oxygen Delivery Method 01/19/23 15:00 01/19/23 15:33 01/19/23 15:35 Temperature Pulse Rate Pulse Rate [Orthostatic Lying] Pulse Rate [Orthostatic Sitting] Pulse Rate [Orthostatic Standing] Respiratory Rate 19 Blood Pressure 128/60 159/72 H Blood Pressure [Orthostatic Lying] Blood Pressure [Orthostatic Sitting] Blood Pressure [Orthostatic Standing] Pulse Oximetry 99 Oxygen Delivery Method 01/19/23 15:35 01/19/23 16:00 Temperature Pulse Rate 70 68 Pulse Rate [Orthostatic Lying] Pulse Rate [Orthostatic Sitting] Pulse Rate [Orthostatic Standing] Respiratory Rate 22 22 Blood Pressure Blood Pressure [Orthostatic Lying] Blood Pressure [Orthostatic Sitting] Blood Pressure [Orthostatic Standing] Pulse Oximetry 94 Oxygen Delivery Method MDM - Nausea/Vomiting/Diarrhea Differential Diagnosis Differential diagnosis: Likely food poisoning, gastroenteritis, dehydration and other (Urinary tract infection.) Lab Data 01/19/23 11:55 01/19/23 11:55 Labs: Lab Results 01/19/23 01/19/23 01/19/23 Range/Units 11:55 11:57 15:57 WBC 9.3 (4.5-11.0) X10^3/uL RBC 4.48 (4.0-5.2) X10^6/uL Hgb 14.2 (12.0-16.0) g/dL Hct 41.5 (36-46) % MCV 92.6 (80-100) fL MCH 31.7 (26-34) PG MCHC 34.2 (30-36) % RDW 13.5 (11.6-14.8) % Plt Count 296 (150-400) X10^3/uL Neut % (Auto) 80.6 H (50-75) % Lymph % (Auto) 13.9 L (25-40) % [place] % (Auto) 5.0 (3-14) % Eos % (Auto) 0.1 L (2-4) % Baso % (Auto) 0.4 (0-2) % Neut # (Auto) 7500 H (6867-1397) /uL Lymph # (Auto) 1300 (0254-4393) /uL [place] # (Auto) 500 (0-900) /uL Eos # (Auto) 0 (0-450) /uL Baso # (Auto) 0 (0-100) /uL Sodium 128 L (137-145) mmol/L Potassium 3.5 (3.4-5.1) mmol/L Chloride 93 L (98-107) mmol/L Carbon Dioxide 26 (22-32) mmol/L BUN 6 L (7-17) mg/dL Creatinine 0.43 L (0.52-1.04) mg/dL Estimated GFR > 60 (>60) mL/min BUN/Creatinine Ratio 14.0 (6-22) Glucose 143 H (80-110) mg/dL Calcium 9.5 (8.4-10.2) mg/dL Total Bilirubin 0.9 (0.2-1.3) mg/dL AST 28 (14-36) IU/L ALT 18 (<35) IU/L Alkaline Phosphatase 74 (38-126) U/L Total Protein 7.8 (6.3-8.2) g/dL Albumin 4.7 (3.5-5.0) g/dL Globulin 3.1 (1.7-4.1) g/dL Albumin/Globulin Ratio 1.5 (1.0-2.8) Lipase 86 (23-300) U/L Urine Color Yellow Urine Appearance Clear Urine pH 6.0 (4.5-8.0) Ur Specific [place] 1.020 (1.000-1.035) Urine Protein Negative (Negative) Urine Glucose (UA) Negative (Negative) g/dL Urine Ketones 3+ H (NEGATIVE) Urine Occult Blood Negative (Negative) Urine Nitrate Negative (Negative) Urine Bilirubin Negative (NEGATIVE) Urine Urobilinogen 0.2 (0.2) E.U./dL Ur Leukocyte Esterase 1+ H (NEGATIVE) Urine RBC 0-1/hpf (0-5/HPF) Urine WBC 5-10/hpf H (0-5/HPF) Ur Squamous Epith Cells 1-5 /hpf (0-5/HPF) Urine Bacteria Few (2-10) H (None) Ur Culture Indicated? Specimen cultured Point of Care Testing Glucose POC 120 MDM Narrative Medical decision making narrative: Laboratory data shows white count of 9.3 sodium 128 potassium 3.5 glucose 143 urine with 3+ ketones all suggesting dehydration. Given her normal exam and temperature of 98.2? and general improvement over Zofran and fluids feel it is safe for her to recover at home in the care of her . Encouraged her to get a primary care provider to establish care and patient agrees. This patient was discussed with Dr. david who agrees with assessment and plan. Discharge Plan Departure Patient Disposition: Home Clinical Impression: Vomiting and diarrhea, Dehydration Instructions: DI for Nausea -- Adult Activity Restrictions/Additional Instructions: Your lab work today is reassuring with no significantly abnormal results. Given your normal exam as well I feel comfortable discharging you for home management and observation. It is hard to say what is triggering these episodes of nausea and vomiting. Take the anti nausea medicine every 8 hours as needed. It is important that you hydrate particularly as you were moderately dehydrated today. Please advance to soft bland foods as tolerated. Come back if you have new onset fever belly pain or any other concerns. I suggest you get a primary provider here in [place] as soon as possible. It was a pleasure to take care of you today. Prescriptions: New ondansetron 4 mg tablet,disintegrating 4 mg PO Q8H PRN (Reason: nausea and vomiting) Qty: 10 0RF No Action carisoprodol [Soma] 350 mg Tablet 350 mg PO BEDTIME Patient Comments: currently taking 1/4 tab at bedtime alprazolam [Xanax] 1 mg Tablet 1 mg PO TID Patient Comments: Doesn't take this often Referrals: Miscellaneous,Doctor, MD [Primary Care Provider] - Stand Alone Forms: Patient Portal/API
[2023-01-19 14:26] LABS: Lipase 86 U/L (23-300)
--- NOTE | 2023-01-19 15:58 | PC.NURSE ---
Provider gave verbal order to to place straight catheter after bladder scan of 450+ urine and two bolus of normal saline. This RN went to talk to patient about that and patient asked to attempt the commode again and was successful with 300ml urine output.
[2023-01-19 16:02] LABS: Appearance Urine UA CLEAR; Bilirubin Urine UA NEGATIVE (NEGATIVE); Color Urine UA YELLOW; Glucose Urine UA NEGATIVE (Negative); Ketones Urine UA 3+ (NEGATIVE); Leukocyte Esterase Urine UA 1+ (NEGATIVE); Nitrite Urine UA NEGATIVE (Negative); Occult Blood Urine UA NEGATIVE (Negative); Protein Urine UA NEGATIVE (Negative); Urobilinogen Urine UA 0.2 E.U./dL (0.2)
[2023-01-19 16:09] LABS: RBC Urine 0-1/HPF (0-5/HPF); WBC Urine 5-10/HPF (0-5/HPF)
[2023-01-19 16:10] LABS: Bacteria Urine Few (2-10); Culture Indicated Urine Specimen Cultured; Squamous Epithelial Cell Urine 1-5 /HPF (0-5/HPF)
== END 2023-01-19 16:23 | disposition home or self-care (01) ==
PROVIDERS: Emergency Medicine; Emergency Provider Physician Assistant
DX: R11.2 Nausea with vomiting, unspecified (principal); R19.7 Diarrhea, unspecified; E86.0 Dehydration; R03.0 Elevated blood-pressure reading, without diagnosis of hypertension
CPT/HCPCS: 36415; 51798; 80053; 81001; 82962; 83690; 85025; 87086; 93005; 93010; 96361; 96374; 96376; 99284; J2405

== ENCOUNTER → 2024-04-08 14:27 | Outpatient (CLI) | payer MEDICARE, SELFPAY ==
[2021-05-04 16:00] VITALS: BMI 20.9
[2024-04-08 15:38] LABS: Appearance Urine UA CLOUDY; Bilirubin Urine UA NEGATIVE (NEGATIVE); Color Urine UA YELLOW; Glucose Urine UA NEGATIVE (Negative); Ketones Urine UA NEGATIVE (NEGATIVE); Leukocyte Esterase Urine UA 2+ (NEGATIVE); Nitrite Urine UA NEGATIVE (Negative); Occult Blood Urine UA TRACE-INTACT (Negative); Protein Urine UA 1+ (Negative); Urobilinogen Urine UA 0.2 E.U./dL (0.2)
[2024-04-08 15:47] LABS: Bacteria Urine Many (>30); Culture Indicated Urine Specimen Cultured; RBC Urine None Seen (0-5/HPF); Squamous Epithelial Cell Urine None Seen (0-5/HPF); Urine Volume 10mL (spun); WBC Urine >100/HPF (0-5/HPF)
== END ==
PROVIDERS: Family Provider Nurse Practitioner Family; PCP Nurse Practitioner Family; Referring Provider Internal Medicine; Visit Provider Internal Medicine
DX: R30.0 Dysuria (principal); R39.89 Other symptoms and signs involving the genitourinary system
CPT/HCPCS: 81001; 87077; 87086; 87186